=== PATIENT | male | born 1990 ===

== ENCOUNTER 2018-01-29 10:13 | Emergency (ER) | payer MEDICAID, OTHER ==
[2018-01-29 10:27] VITALS: BMI 32.1
[2018-01-29 10:30] VITALS: BP 106/58; PULSE 74; RESP 20; TEMP 98.6; O2SAT 98
[2018-01-29] MEDS ORDERED: Lidocaine 5% Patch TD STA (11:33)
[2018-01-29] MEDS ORDERED: Lidocaine 5% Patch TD ONE (11:47)
--- NOTE | 2018-01-29 12:02 | ED PDOC ---
HPI: Back Time Seen by Provider: 01/29/18 11:04 Chief Complaint (Nursing): Back Pain History Per: Patient Additional Complaint(s): Pt. states since Saturday pt. has had atraumatic lower back pain on both sides ( contrary to triage note) which radiates down both legs greatest in the R leg. 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 Two years ago he was dx with a "disc problem" and received physical therapy which did not help. Reports he's had lower back pain constantly x 2 years but on Saturday symptoms became worse. Denies blunt trauma, incontinence, abd pain, N/V/D, previous surgeries, fever. Past Medical History Reviewed: Historical Data, Nursing Documentation, Vital Signs Vital Signs: Last Vital Signs Temp 98.6 F 01/29/18 10:28 Pulse 74 01/29/18 10:28 Resp 20 01/29/18 10:28 BP 106/58 L 01/29/18 10:28 Pulse Ox 98 01/29/18 10:28 - Surgical History Surgical History: No Surg Hx - Family History Family History: States: No Known Family Hx - Immunization History Hx Tetanus Toxoid Vaccination: Yes Hx Influenza Vaccination: Yes Hx Pneumococcal Vaccination: Yes - Home Medications Home Medications: Ambulatory Orders Medication Instructions Recorded Cyclobenzaprine [Cyclobenzaprine 10 mg PO Q8 PRN #14 tab 01/29/18 HCl] Naproxen [Naprosyn] 500 mg PO BID PRN #14 tab 01/29/18 - Allergies Allergies/Adverse Reactions: Allergies Allergy/AdvReac Type Severity Reaction Status Date / Time No Known Allergies Allergy Verified 01/29/18 11:04 Review of Systems ROS Statement: Except As Marked, All Systems Reviewed And Found Negative Musculoskeletal: Positive for: Back Pain Physical Exam - Physical Exam Appears: Positive for: Well, Non-toxic, No Acute Distress Skin: Positive for: Normal Color, Warm. Negative for: Rash Eye Exam: Positive for: Normal appearance Cardiovascular/Chest: Positive for: Regular Rate, Rhythm, Chest Non Tender Respiratory: Positive for: Normal Breath Sounds Gastrointestinal/Abdominal: Positive for: Normal Exam, Soft. Negative for: Tenderness Back: Positive for: Normal Inspection, Muscle Spasm (b/l paralumbar tenderness) , Other (SLR positive in R leg at approximately 30 degrees; SLR negative in L leg). Negative for: L CVA Tenderness, R CVA Tenderness, Vertebral Tenderness Extremity: Negative for: Calf Tenderness (b/l) Neurologic/Psych: Positive for: Alert, Oriented, Gait (steady, unassisted) - ECG O2 Sat by Pulse Oximetry: 98 - Progress ED Course And Treament: Toradol 30mg IM, lidoderm patch, UA ordered. On re-evaluation, pain is still present but has improved. Disposition - Clinical Impression Clinical Impression: Chronic back pain - Patient ED Disposition Is Patient to be Admitted: No - Disposition Referrals: [facility] [Outside] [facility] [Outside] Disposition: Routine/Home Disposition Time: 12:28 Condition: IMPROVED Additional Instructions: Follow up with [facility] for further evaluation. Return to ED immediately if symptoms worsen. Prescriptions: Cyclobenzaprine [Cyclobenzaprine HCl] 10 mg PO Q8 PRN #14 tab PRN Reason: Muscle Spasm Naproxen [Naprosyn] 500 mg PO BID PRN #14 tab PRN Reason: Pain Instructions: Low Back Pain (DC) Forms: [facility] (Turkmen), [facility] ED School/Work Excuse Print Language: UKRAINIAN
[2018-01-29 12:15] LABS: URINE BACTERIA RARE (<OCC); URINE BILIRUBIN NEGATIVE (NEGATIVE); URINE BLOOD NEGATIVE (NEGATIVE); URINE CLARITY SLIGHTY-CLOUDY (Clear); URINE COLOR YELLOW (YELLOW); URINE GLUCOSE (UA) NEG (Normal); URINE LEUKOCYTE ESTERASE NEG Leu/uL (Negative); URINE PROTEIN NEGATIVE (NEGATIVE); URINE UROBILINOGEN 0.2-1.0 mg/dL (0.2-1.0)
== END 2018-01-29 13:40 | disposition home or self-care (01) ==
LOC: H.ER 10:13
DX: G89.29 Other chronic pain (principal)
CPT/HCPCS: 81003; 96372; 99283; J1885